=== PATIENT | female | born 1995 | race American Indian/Alaskan Native ===

== ENCOUNTER 2017-07-04 12:03 | Emergency (ER) | payer SELFPAY ==
--- NOTE | 2017-07-04 12:20 | Emergency Department Report ---
Chief Complaint: Headache Stated Complaint: BODY PAIN/SWELLING/CP Time Seen by Provider: 07/04/17 12:16 - HPI History of Present Illness: PT c/o generalized weakness, chest pain and her whole body swelling. - ROS Review of Systems: + fatigue + vaginal bleeding x 2 months PT states she fell today from generalized weakness - Exam Vital Signs: Vital Signs 07/04/17 12:11 Temperature 97.9 F Pulse Rate 53 L Respiratory 20 Rate Blood Pressure 135/76 O2 Sat by Pulse 100 Oximetry Physical Exam: PT is alert and appropriate in triage steady gait pale conjunctiva gcs 15 MSE screening note: Focused history and physical exam performed. Due to findings the following was ordered: labs, ekg, xr ED Disposition for MSE Condition: Stable
[2017-07-04 12:46] LABS: Basophils % (Auto) 0.6 % (0.0-1.8); Eosinophils % (Auto) 1.5 % (0.0-4.3); Hematocrit 31.1 % (30.3-42.9); Hemoglobin 9.9 gm/dl (10.1-14.3); Mean Corpuscular HGB Conc 32 % (30-34); Mean Corpuscular Hemoglobin 27 pg (28-32); Mean Corpuscular Volume 84 fl (79-97); Platelet Count 287 K/mm3 (140-440); Red Blood Count 3.69 M/mm3 (3.65-5.03); Red Cell Distribution Width 15.7 % (13.2-15.2); White Blood Count 6.6 K/mm3 (4.5-11.0)
[2017-07-04 12:55] LABS: INR 1.12 (0.87-1.13)
[2017-07-04 12:56] LABS: Partial Thromboplastin Time 32.9 Sec. (24.2-36.6)
[2017-07-04 13:06] LABS: Alanine Aminotransferase 10 units/L (7-56); Albumin 3.5 g/dL (3.9-5); Alkaline Phosphatase 58 units/L (35-129); Anion Gap 16 mmol/L; BUN/Creatinine Ratio 14.28; Blood Urea Nitrogen 10 mg/dL (7-17); Calcium 8.6 mg/dL (8.4-10.2); Carbon Dioxide 23 mmol/L (22-30); Chloride 100.8 mmol/L (98-107); Glucose 92 mg/dL (65-100); Potassium 3.5 mmol/L (3.6-5.0); Sodium 136 mmol/L (137-145)
--- NOTE | 2017-07-04 14:04 | XRay Report ---
ROUTINE CHEST, TWO VIEWS: HISTORY: chest pain. The trachea, heart, mediastinal contour, lung johns and bony thorax are unremarkable. IMPRESSION: Unremarkable chest x-ray.
--- NOTE | 2017-07-04 14:28 | Ultrasound Report ---
ULTRASOUND OB LESS THAN 14 WEEKS FETUS ULTRASOUND OB TRANSVAGINAL HISTORY: Positive test, vaginal bleeding. TECHNIQUE: Transabdominal and transvaginal ultrasound with color and spectral doppler interrogation. The uterus measures 9 x 4 x 5 cm. No normal intrauterine is visualized. There is thickening and soft tissue echogenicity within the endocervical canal measuring up to 1.5 cm in thickness. This may represent an incomplete . The upper endometrial stripe measures 8 mm. The ovaries are within normal limits. No adnexal cyst or mass. Small pelvic fluid is noted. IMPRESSION: Findings concerning for an incomplete . See above.
[2017-07-04 17:00] VITALS: BP 135/86
--- NOTE | 2017-07-04 17:09 | Emergency Department Report ---
ED General Adult HPI - General Chief complaint: Headache Stated complaint: BODY PAIN/SWELLING/CP Time Seen by Provider: 07/04/17 12:16 Source: patient Mode of arrival: Ambulatory Limitations: No Limitations - History of Present Illness Initial comments: 21-year-old female with no significant past medical history presents to the hospital with multiple complaints. Patient complains of pain to the left angle of her mandible radiating to her ear and head which she describes as "a migraine " for several days. Patient has no previous history of headaches or migraines. Patient noticed swelling to that area as well. Denies sore throat, cough, or fever. This morning at 11 AM patient developed lower mid sternal chest pain described as stabbing. Pain worse to palpation and deep, movement, and deep inspiration. Patient also has had vaginal bleeding for last 2 months has not taken a test. Procedures in ED positive and patient states this is her second and she has one child with no history of miscarriage, , or ectopics. Severity scale (0 -10): 4 - Related Data Previous Rx's Medication Instructions Recorded Last Taken Type Ibuprofen [Motrin 600 MG tab] 600 mg PO Q6H PRN #30 tablet 08/29/14 Unknown Rx Amoxicillin/K Clav Tab [Augmentin 1 tab PO Q12HR #14 tab 07/04/17 Unknown Rx 875 mg] Allergies Allergy/AdvReac Type Severity Reaction Status Date / Time No Known Allergies Allergy Verified 07/04/17 12:13 ED Review of Systems ROS: Stated complaint: BODY PAIN/SWELLING/CP Other details as noted in HPI Comment: All other systems reviewed and negative Other: Constitutional: No fevers chills Eyes: No eye pain visual changes ENT: No ear pain or throat pain Neck: Denies pain Respiratory: Denies cough wheezing Cardiovascular: Denies palpitations, syncope GI: Denies abdominal pain, nausea, vomiting, diarrhea : Vaginal bleeding Musculoskeletal: Denies back pain Skin: Denies rash, lesions, erythema Neurologic: Denies headache, numbness, weakness Psychiatric: Denies suicidal ideation, hallucinations ED Past Medical Hx - Past Medical History Hx Hypertension: No Hx Congestive Heart Failure: No Hx Diabetes: No Hx Deep Vein Thrombosis: No Hx Renal Disease: No Hx Sickle Cell Disease: No Hx Seizures: No Hx Asthma: No Hx COPD: No Hx HIV: No 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 - Surgical History Past Surgical History?: No - Social History Smoking Status: Never Smoker Substance Use Type: None - Medications Home Medications: Home Medications Medication Instructions Recorded Confirmed Last Taken Type Ibuprofen [Motrin 600 MG tab] 600 mg PO Q6H PRN #30 tablet 08/29/14 Unknown Rx Amoxicillin/K Clav Tab [Augmentin 1 tab PO Q12HR #14 tab 07/04/17 Unknown Rx 875 mg] ED Physical Exam - General Limitations: No Limitations - Other Other exam information: General: No limitations, patient is alert in no acute distress Head exam: Atraumatic, normocephalic Eyes exam: Normal appearance ENT: Moist mucous membrane, normal oropharynx without exudate. Left ear canal tenderness on exam with mild erythema p.m. poor light reflex Neck exam: Normal inspection, full range of motion, no meningismus, tender lymph node at the neck close to the angle of the mandible. Respiratory exam: Clear to auscultation bilateral, no wheezes, rales, crackles Cardiovascular: Normal rate and rhythm, normal heart sounds, reproducible mid lower sternal tenderness Abdomen: Soft, nondistended, and nontender, with normal bowel sounds, no rebound, or guarding Extremity: Full range of motion normal inspection no deformity, no calf tenderness or edema Back: Normal Inspection, full range of motion, no tenderness Neurologic: Alert, oriented x3, cranial nerves intact, no motor or sensory deficit Psychiatric: normal affect, normal mood Skin: Warm, dry, intact ED Course Vital Signs 07/04/17 07/04/17 12:11 16:57 Temperature 97.9 F Pulse Rate 53 L 52 L Respiratory 20 16 Rate Blood Pressure 135/76 Blood Pressure 135/86 [Left] O2 Sat by Pulse 100 100 Oximetry - Reevaluation(s) Reevaluation #1: 07/04/17 17:09 Patient received RhoGAM for Rh- blood type - Consultations Consultation #1: 07/04/17 17:05 case d/w Dr Simmons/RN ANGIOGRAPHY. Recommend repeat beta hCG in 40 hours. Patient may follow up in the office. ED Medical Decision Making - Lab Data Result diagrams: 07/04/17 12:29 07/04/17 12:29 Lab Results 07/04/17 07/04/17 07/04/17 Range/Units 09:42 12:29 12:29 WBC 6.6 (4.5-11.0) K/mm3 RBC 3.69 (3.65-5.03) M/mm3 Hgb 9.9 L (10.1-14.3) gm/dl Hct 31.1 (30.3-42.9) % MCV 84 (79-97) fl MCH 27 L (28-32) pg MCHC 32 (30-34) % RDW 15.7 H (13.2-15.2) % Plt Count 287 (140-440) K/mm3 Lymph % (Auto) 40.3 H (13.4-35.0) % Evans % (Auto) 7.0 (0.0-7.3) % Eos % (Auto) 1.5 (0.0-4.3) % Baso % (Auto) 0.6 (0.0-1.8) % Lymph # 2.6 (1.2-5.4) K/mm3 Evans # 0.5 (0.0-0.8) K/mm3 Eos # 0.1 (0.0-0.4) K/mm3 Baso # 0.0 (0.0-0.1) K/mm3 Seg Neutrophils % 50.6 (40.0-70.0) % Seg Neutrophils # 3.3 (1.8-7.7) K/mm3 PT (12.2-14.9) Sec. INR (0.87-1.13) APTT (24.2-36.6) Sec. Sodium 136 L (137-145) mmol/L Potassium 3.5 L (3.6-5.0) mmol/L Chloride 100.8 (98-107) mmol/L Carbon Dioxide 23 (22-30) mmol/L Anion Gap 16 mmol/L BUN 10 (7-17) mg/dL Creatinine 0.7 (0.7-1.2) mg/dL Estimated GFR > 60 ml/min BUN/Creatinine Ratio 14.28 % Glucose 92 (65-100) mg/dL Calcium 8.6 (8.4-10.2) mg/dL Total Bilirubin 0.20 (0.1-1.2) mg/dL AST 13 (5-40) units/L ALT 10 (7-56) units/L Alkaline Phosphatase 58 (35-129) units/L Troponin T < 0.010 (0.00-0.029) ng/mL Total Protein 7.0 (6.3-8.2) g/dL Albumin 3.5 L (3.9-5) g/dL Albumin/Globulin Ratio 1.0 % HCG, Qual (Negative) HCG, Quant 81.74 H (0-4) mIU/mL Blood Type Antibody Screen 07/04/17 07/04/17 07/04/17 Range/Units 12:29 12:29 12:29 WBC (4.5-11.0) K/mm3 RBC (3.65-5.03) M/mm3 Hgb (10.1-14.3) gm/dl Hct (30.3-42.9) % MCV (79-97) fl MCH (28-32) pg MCHC (30-34) % RDW (13.2-15.2) % Plt Count (140-440) K/mm3 Lymph % (Auto) (13.4-35.0) % Evans % (Auto) (0.0-7.3) % Eos % (Auto) (0.0-4.3) % Baso % (Auto) (0.0-1.8) % Lymph # (1.2-5.4) K/mm3 Evans # (0.0-0.8) K/mm3 Eos # (0.0-0.4) K/mm3 Baso # (0.0-0.1) K/mm3 Seg Neutrophils % (40.0-70.0) % Seg Neutrophils # (1.8-7.7) K/mm3 PT 15.0 H (12.2-14.9) Sec. INR 1.12 (0.87-1.13) APTT 32.9 (24.2-36.6) Sec. Sodium (137-145) mmol/L Potassium (3.6-5.0) mmol/L Chloride (98-107) mmol/L Carbon Dioxide (22-30) mmol/L Anion Gap mmol/L BUN (7-17) mg/dL Creatinine (0.7-1.2) mg/dL Estimated GFR ml/min BUN/Creatinine Ratio % Glucose (65-100) mg/dL Calcium (8.4-10.2) mg/dL Total Bilirubin (0.1-1.2) mg/dL AST (5-40) units/L ALT (7-56) units/L Alkaline Phosphatase (35-129) units/L Troponin T (0.00-0.029) ng/mL Total Protein (6.3-8.2) g/dL Albumin (3.9-5) g/dL Albumin/Globulin Ratio % HCG, Qual Positive (Negative) HCG, Quant (0-4) mIU/mL Blood Type O NEGATIVE Antibody Screen Negative - EKG Data -: EKG Interpreted by Me (sinus bradycardia rate 50. ST elevation MA) - EKG Data When compared to previous EKG there are: previous EKG unavailable - Radiology Data Radiology results: report reviewed (cxr: unremarkable) - Medical Decision Making Other differential , anemia, ectopic, miscarriage Patient is likely having a miscarriage given her history of 2 months of vaginal bleeding, low hCG number, and sounds findings. Patient would need a repeat beta -hCG in 48 hours to confirm this miscarriage diagnosis. Patient having left sided neck lymphadenopathy with ear pain. She'll be covered with an antibiotic. Patient had a reproducible chest wall pain and will receive symptomatic treatment for costochondritis. - Differential Diagnosis otitis media/externa, viral syndrome, costochondritis, pneumonia, pharyngit Critical Care Time: No Critical care attestation.: If time is entered above; I have spent that time in minutes in the direct care of this critically ill patient, excluding procedure time. ED Disposition Clinical Impression: Threatened , Lymphadenopathy, Costochondritis, acute, Otitis media, Anemia Disposition: - TO HOME OR SELFCARE Is pt being admited?: No Does the pt Need Aspirin: No Condition: Stable Instructions: Costochondritis (ED), Threatened Miscarriage (ED), Otitis Media ( ED) Additional Instructions: Take Tylenol as needed for pain. Return if symptoms worsen. Follow up for blood draw with the RN ANGIOGRAPHY doctor within 48 hours. If you are unable to see the RN ANGIOGRAPHY doctor you may return here for repeat blood work. Prescriptions: Amoxicillin/K Clav Tab [Augmentin 875 mg] 1 tab PO Q12HR #14 tab Referrals: KELSIE NUNO MD [Staff Physician] - 07/06/17 (follow up in 48 ) PRIMARY CARE, [Primary Care Provider] - 3-5 Days Time of Disposition: 17:17
== END 2017-07-04 17:39 | disposition home or self-care (01) ==
LOC: ED 12:03
DX: O20.0 Threatened abortion (principal); O26.899 Other specified pregnancy related conditions, unspecified trimester; R59.1 Generalized enlarged lymph nodes; M94.0 Chondrocostal junction syndrome [Tietze]; H66.93 Otitis media, unspecified, bilateral; D64.9 Anemia, unspecified; Z3A.49 Greater than 42 weeks gestation of pregnancy
CPT/HCPCS: 36415; 71020; 76801; 76817; 80053; 84484; 84702; 84703; 85025; 85610; 85730; 86850; 86900; 86901; 93005; 93010; 99284; J2790

== ENCOUNTER 2017-07-07 13:46 | Emergency (ER) | payer SELFPAY ==
[2017-07-07 14:00] VITALS: BP 134/75
[2017-07-07 14:45] LABS: Basophils % (Auto) 0.6 % (0.0-1.8); Hematocrit 31.2 % (30.3-42.9); Hemoglobin 10.1 gm/dl (10.1-14.3); Mean Corpuscular HGB Conc 32 % (30-34); Mean Corpuscular Hemoglobin 27 pg (28-32); Mean Corpuscular Volume 84 fl (79-97); Platelet Count 297 K/mm3 (140-440); Red Blood Count 3.74 M/mm3 (3.65-5.03); Red Cell Distribution Width 15.9 % (13.2-15.2); White Blood Count 6.9 K/mm3 (4.5-11.0)
== END 2017-07-07 17:13 | disposition left against medical advice (07) ==
LOC: ED 13:46
DX: Z53.21 Procedure and treatment not carried out due to patient leaving prior to being seen by health care provider (principal)
CPT/HCPCS: 36415; 84702; 84703; 85025

== ENCOUNTER 2018-02-12 21:49 | Emergency (ER) | payer SELFPAY ==
[2018-02-12 22:02] VITALS: BP 139/77
== END 2018-02-13 00:50 | disposition left against medical advice (07) ==
LOC: ED 21:49
DX: L02.412 Cutaneous abscess of left axilla (principal); Z53.21 Procedure and treatment not carried out due to patient leaving prior to being seen by health care provider

== ENCOUNTER 2018-04-15 02:04 | Emergency (ER) | payer OTHER ==
[2018-04-15 03:39] LABS: BUN/Creatinine Ratio 15; Blood Urea Nitrogen 9 mg/dL (7-17); Calcium 8.8 mg/dL (8.4-10.2); Hemolysis Index 1
[2018-04-15 04:02] LABS: Basophils % (Auto) 0.5 % (0.0-1.8); Eosinophils % (Auto) 0.9 % (0.0-4.3); Lymphocytes # (Auto) 1.9 K/mm3 (1.2-5.4); Lymphocytes % (Auto) 38.6 % (13.4-35.0); Mean Corpuscular HGB Conc 33 % (30-34); Mean Corpuscular Hemoglobin 27 pg (28-32); Mean Corpuscular Volume 84 fl (79-97); Monocytes # (Auto) 0.4 K/mm3 (0.0-0.8); Monocytes % (Auto) 7.5 % (0.0-7.3); Platelet Count 253 K/mm3 (140-440); Red Blood Count 4.43 M/mm3 (3.65-5.03); Red Cell Distribution Width 16.8 % (13.2-15.2)
[2018-04-15 04:06] LABS: Bilirubin,Urine NEG (Negative); Blood,Urine NEG (Negative); Color,Urine Straw (Yellow); Protein,Urine <15 mg/dL mg/dL (Negative); Urobilinogen,Urine < 2.0 mg/dL (<2.0)
[2018-04-15 04:14] LABS: Amphetamine Screen,Urine PRESUMPTIVE NEGATIVE; Benzodiazepines Screen,Urine PRESUMPTIVE NEGATIVE; Cannabinoid Screen,Urine PRESUMPTIVE NEGATIVE; Cocaine Screen,Urine PRESUMPTIVE NEGATIVE; Methadone Screen,Urine PRESUMPTIVE NEGATIVE; Opiate Screen,Urine PRESUMPTIVE NEGATIVE
--- NOTE | 2018-04-15 04:49 | Emergency Department Report ---
ED Psych HPI - General Chief Complaint: Overdose Stated Complaint: POSS OD Time Seen by Provider: 04/15/18 04:38 Source: patient, EMS Mode of arrival: Stretcher - History of Present Illness Initial Comments: Michelle is a 22 yo female who presents with intentional drug overdose. She took 9 pills of ibuprofen prior to arrival. She stated that she wanted the "pain to go away." She gives very limited history. I asked her why she would not cooperate. She explains "I do not want to be treated like a psych patient. " When I ask about depression or previous suicide attempts, she chooses not to answer. She states that she just wants to go home. I reviewed nursing report and spoke with staff member. EMS reported that the patient was found by her sister awake but not talking. EMS found him 75 pills spilled all over the bed. MD Complaint: other (intentional drug overdose) Associated Psychiatric Symptoms: other (patient gives limited information.) - Related Data Previous Rx's Medication Instructions Recorded Last Taken Type Ibuprofen [Motrin 600 MG tab] 600 mg PO Q6H PRN #30 tablet 08/29/14 Unknown Rx Amoxicillin/K Clav Tab [Augmentin 1 tab PO Q12HR #14 tab 07/04/17 Unknown Rx 875 mg] Allergies Allergy/AdvReac Type Severity Reaction Status Date / Time No Known Allergies Allergy Verified 07/04/17 12:13 ED Review of Systems ROS: Stated complaint: POSS OD Other details as noted in HPI Comment: Unobtainable due to pts medical conditions (patient will not cooperate ) ED Past Medical Hx - Past Medical History Hx Hypertension: No Hx Congestive Heart Failure: No Hx Diabetes: No Hx Deep Vein Thrombosis: No Hx Renal Disease: No Hx Sickle Cell Disease: No Hx Seizures: No Hx Asthma: No Hx COPD: No Hx HIV: No 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 - Social History Smoking Status: Never Smoker Substance Use Type: Other - Medications Home Medications: Home Medications Medication Instructions Recorded Confirmed Last Taken Type Ibuprofen [Motrin 600 MG tab] 600 mg PO Q6H PRN #30 tablet 08/29/14 Unknown Rx Amoxicillin/K Clav Tab [Augmentin 1 tab PO Q12HR #14 tab 07/04/17 Unknown Rx 875 mg] ED Physical Exam - General Limitations: Other General appearance: alert, in no apparent distress - Head Head exam: Present: atraumatic, normocephalic - Eye Eye exam: Present: normal appearance - ENT ENT exam: Present: mucous membranes moist - Neck Neck exam: Present: normal inspection - Respiratory Respiratory exam: Present: normal lung sounds bilaterally. Absent: respiratory distress, wheezes, rhonchi - Cardiovascular Cardiovascular Exam: Present: regular rate, normal rhythm, normal heart sounds. Absent: systolic murmur, diastolic murmur, rubs, gallop - GI/Abdominal GI/Abdominal exam: Present: soft, normal bowel sounds. Absent: distended, tenderness, guarding, rebound - Extremities Exam Extremities exam: Present: normal inspection - Back Exam Back exam: Present: normal inspection - Neurological Exam Neurological exam: Present: alert, oriented X3 - Psychiatric Psychiatric exam: Present: depressed, flat affect. Absent: normal affect, normal mood - Skin Skin exam: Present: warm, dry, intact, normal color. Absent: rash ED Course Vital Signs 04/15/18 04/15/18 04/15/18 02:27 02:31 02:45 Temperature 97.2 F L Pulse Rate 69 78 66 Respiratory 20 17 17 Rate Blood Pressure 149/95 126/78 O2 Sat by Pulse 100 100 Oximetry 04/15/18 04/15/18 03:00 04:36 Temperature Pulse Rate 67 Respiratory 23 18 Rate Blood Pressure 134/83 O2 Sat by Pulse 100 100 Oximetry ED Medical Decision Making - Lab Data Result diagrams: 04/15/18 03:06 04/15/18 03:06 Laboratory Results - last 24 hr 04/15/18 04/15/18 04/15/18 03:06 03:06 03:06 WBC RBC Hgb Hct MCV MCH MCHC RDW Plt Count Lymph % (Auto) Bryan % (Auto) Eos % (Auto) Baso % (Auto) Lymph # Bryan # Eos # Baso # Seg Neutrophils % Seg Neutrophils # Sodium 138 Potassium 3.7 Chloride 102.6 Carbon Dioxide 22 Anion Gap 17 BUN 9 Creatinine 0.6 L Estimated GFR > 60 BUN/Creatinine Ratio 15 Glucose 82 Calcium 8.8 HCG, Qual Urine Color Urine Turbidity Urine pH Ur Specific [place] Urine Protein Urine Glucose (UA) Urine Ketones Urine Blood Urine Nitrite Urine Bilirubin Urine Urobilinogen Ur Leukocyte Esterase Urine WBC (Auto) Urine RBC (Auto) U Epithel Cells (Auto) Salicylates 11.1 Urine Opiates Screen Urine Methadone Screen Acetaminophen < 5.0 L Ur Barbiturates Screen Ur Phencyclidine Scrn Ur Amphetamines Screen U Benzodiazepines Scrn Urine Cocaine Screen U Marijuana (THC) Screen Plasma/Serum Alcohol 04/15/18 04/15/18 04/15/18 03:06 03:06 03:06 WBC 4.9 RBC 4.43 Hgb 12.0 Hct 37.0 MCV 84 MCH 27 L MCHC 33 RDW 16.8 H Plt Count 253 Lymph % (Auto) 38.6 H Bryan % (Auto) 7.5 H Eos % (Auto) 0.9 Baso % (Auto) 0.5 Lymph # 1.9 Bryan # 0.4 Eos # 0.0 Baso # 0.0 Seg Neutrophils % 52.5 Seg Neutrophils # 2.6 Sodium Potassium Chloride Carbon Dioxide Anion Gap BUN Creatinine Estimated GFR BUN/Creatinine Ratio Glucose Calcium HCG, Qual Negative Urine Color Urine Turbidity Urine pH Ur Specific [place] Urine Protein Urine Glucose (UA) Urine Ketones Urine Blood Urine Nitrite Urine Bilirubin Urine Urobilinogen Ur Leukocyte Esterase Urine WBC (Auto) Urine RBC (Auto) U Epithel Cells (Auto) Salicylates Urine Opiates Screen Urine Methadone Screen Acetaminophen Ur Barbiturates Screen Ur Phencyclidine Scrn Ur Amphetamines Screen U Benzodiazepines Scrn Urine Cocaine Screen U Marijuana (THC) Screen Plasma/Serum Alcohol < 0.01 04/15/18 04/15/18 03:25 03:25 WBC RBC Hgb Hct MCV MCH MCHC RDW Plt Count Lymph % (Auto) Bryan % (Auto) Eos % (Auto) Baso % (Auto) Lymph # Bryan # Eos # Baso # Seg Neutrophils % Seg Neutrophils # Sodium Potassium Chloride Carbon Dioxide Anion Gap BUN Creatinine Estimated GFR BUN/Creatinine Ratio Glucose Calcium HCG, Qual Urine Color Straw Urine Turbidity Clear Urine pH 5.0 Ur Specific [place] 1.006 Urine Protein <15 mg/dl Urine Glucose (UA) Neg Urine Ketones Neg Urine Blood Neg Urine Nitrite Neg Urine Bilirubin Neg Urine Urobilinogen < 2.0 Ur Leukocyte Esterase Tr Urine WBC (Auto) 1.0 Urine RBC (Auto) 3.0 U Epithel Cells (Auto) 2.0 Salicylates Urine Opiates Screen Presumptive negative Urine Methadone Screen Presumptive negative Acetaminophen Ur Barbiturates Screen Presumptive negative Ur Phencyclidine Scrn Presumptive negative Ur Amphetamines Screen Presumptive negative U Benzodiazepines Scrn Presumptive negative Urine Cocaine Screen Presumptive negative U Marijuana (THC) Screen Presumptive negative Plasma/Serum Alcohol Vital Signs - 24 hr 04/15/18 04/15/18 04/15/18 02:27 02:31 02:45 Temperature 97.2 F L Pulse Rate 69 78 66 Respiratory 20 17 17 Rate Blood Pressure 149/95 126/78 O2 Sat by Pulse 100 100 Oximetry 04/15/18 04/15/18 03:00 04:36 Temperature Pulse Rate 67 Respiratory 23 18 Rate Blood Pressure 134/83 O2 Sat by Pulse 100 100 Oximetry - Medical Decision Making Michelle presents with acute depression and intentional nonlethal overdose. She has a very flat affect with sad mood. She has poor insight. She is at high risk for further harm. She is placed on 1013 with appropriate precautions. She was observed on monitor for 5 hours without cardiovascular instability. She is medically clear for psychiatric care. Critical care attestation.: If time is entered above; I have spent that time in minutes in the direct care of this critically ill patient, excluding procedure time. ED Disposition Clinical Impression: Intentional drug overdose, Acute depression Disposition: DC/TX-70 ANOTHER TYPE HLTHCARE Is pt being admited?: No Does the pt Need Aspirin: No Condition: Stable Referrals: PRIMARY CARE, [Primary Care Provider] - 3-5 Days
--- NOTE | 2018-04-15 15:36 | Consultation ---
History of Present Illness - Reason for Consult Consult date: 04/15/18 Reason for consult: Initial Psychiatric Evaluation Medications and Allergies Allergies Allergy/AdvReac Type Severity Reaction Status Date / Time No Known Allergies Allergy Verified 07/04/17 12:13 Home Medications Medication Instructions Recorded Confirmed Last Taken Type Ibuprofen [Motrin 600 MG tab] 600 mg PO Q6H PRN #30 tablet 08/29/14 Unknown Rx Amoxicillin/K Clav Tab [Augmentin 1 tab PO Q12HR #14 tab 07/04/17 Unknown Rx 875 mg] Mental Status Exam - Vital signs Last Vital Signs Temp 97.2 F L 04/15/18 02:31 Pulse 67 04/15/18 03:00 Resp 18 04/15/18 11:47 BP 131/68 04/15/18 04:45 Pulse Ox 98 04/15/18 11:47 Results Result Diagrams: 04/15/18 03:06 04/15/18 03:06 Abnormal lab results 04/15/18 04/15/18 04/15/18 Range/Units 03:06 03:06 03:06 MCH 27 L (28-32) pg RDW 16.8 H (13.2-15.2) % Lymph % (Auto) 38.6 H (13.4-35.0) % [place] % (Auto) 7.5 H (0.0-7.3) % Creatinine 0.6 L (0.7-1.2) mg/dL Acetaminophen < 5.0 L (10.0-30.0) ug/mL All other labs normal. Assessment and Plan Assessment and plan: Impression: MDD, Severe Type. Cannabis Use DO. Today the patient is depressed, anxious, and tearful during the assessment. Attempting to minimize overdose. DDx: R/O Bipolar DO, R/O MDD Recommendation/Plan: 1. Continue 1013 with placement to inpatient psychiatric services. 2. Risk/Benefits discussed with patient reference antidepressants. 3. The patient prefer therapy at this time instead of taking medication.
--- NOTE | 2018-04-17 14:27 | Progress Note ---
Subjective - Reason for Consult Consult date: 04/17/18 Reason for consult: Psychiatry Follow-up - Chief Complaint Chief complaint: 22 yo AA female who presents with intentional drug overdose. Today the patient is calm during the assessment. 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 She denies SI/HI's and AVH's. She does not want to take any medication at this time. Mental Status Exam - Vital signs Last Vital Signs Temp 98.7 F 04/17/18 09:31 Pulse 65 04/17/18 09:31 Resp 16 04/17/18 09:31 BP 122/73 04/17/18 09:31 Pulse Ox 99 04/17/18 09:31 - Exam Narrative exam: MSE: Appearance: calm, cooperative Behavior: regular eye contact Speech: regular rate and tone Mood: "okay" Affect: congruent to mood Thought Process: circumstantial Thought Content: denies SI/HI's and AVH's Motor Activity: ambulatory Cognition: A/O x 3 Insight: fair Judgment: variable Assessment and Plan Impression: MDD, Severe Type. Cannabis Use DO. Today the patient is calm during the assessment. She is minimize her actions. DDx: R/O Bipolar DO Recommendation/Plan: Continue 1013 with placement to inpatient psy services. Risk/Benefits discussed with patient reference antidepressants. The patient does not want to take medication at this time. Generalized coping skills discussed with the patient.
--- NOTE | 2018-04-18 14:20 | Progress Note ---
Subjective - Reason for Consult Consult date: 04/18/18 Reason for consult: Psychiatry Follow-up - Chief Complaint Chief complaint: "I feel better" 22 yo AA female who presents with intentional drug overdose. Today the patient is calm and cooperative during the assessment. She stated that she spoke with her mother and grandmother about her actions. She stated that she should have not taken the Ibuprofen pills. She stated that her actions were not safe. She denies SI/HI's and AVH's. co Mental Status Exam - Vital signs Last Vital Signs Temp 99.0 F 04/18/18 09:40 Pulse 60 04/18/18 09:40 Resp 18 04/18/18 09:40 BP 126/77 04/18/18 09:40 Pulse Ox 100 04/18/18 09:40 - Exam Narrative exam: MSE: Appearance: calm, cooperative Behavior: regular eye contact Speech: regular rate and tone Mood: "better" Affect: congruent to mood Thought Process: circumstantial Thought Content: denies SI/HI's and AVH's Motor Activity: ambulatory Cognition: A/O x 3 Insight: fair Judgment: variable Assessment and Plan Impression: MDD, Severe Type. Cannabis Use DO. Today the patient is calm during the assessment. DDx: R/O Bipolar DO Recommendation/Plan: Continue 1013 with placement to inpatient psy services. Risk/Benefits discussed with patient reference antidepressants. The patient does not want to take medication at this time. Generalized coping skills discussed with the patient.
--- NOTE | 2018-04-19 14:05 | Progress Note ---
Subjective - Reason for Consult Reason for consult: qiana consult - Chief Complaint Chief complaint: "I feel better" 22 yo AA female who presents with intentional drug overdose. Today the patient remains calm and continues to deny any SI/HI/AH/VH. she reiterates that she understands what she did was wrong for her health and improper coping. She denies any depression. She notes that she is willing to follow up with outpt care and would like to return home with her family. Mental Status Exam - Vital signs Last Vital Signs Temp 98.6 F 04/18/18 20:45 Pulse 66 04/18/18 20:45 Resp 16 04/18/18 20:45 BP 120/68 04/18/18 20:45 Pulse Ox 99 04/18/18 20:45 - Exam Orientation: time, place, person Affect: normal Mood: appropriate Thought Process: Intact Perceptions: none Speech: normal rate and pattern Concentration: focused Motor activity: normal Level of consciousness: alert Memory: Intact Mini mental status exam(if necessary): 24-30 Assessment and Plan Impression: MDD, Severe Type. Cannabis Use DO. Recommendation/Plan: -Rescind 1013 -At this time the patient no longer meets criteria for inpatient care- she is no longer expressing harm to self and her family notes that they feel they can care for her. -material related to follow up with outpt services will be given to her.
[2018-04-19 14:08] VITALS: BP 119/68
--- NOTE | 2018-04-19 14:48 | Emergency Department Report ---
Blank Doc - Documentation Documentation: I reviewed Dr. Haynes's psychiatric consultation. Dr. Hyanes has rescinded 1013. Patient has appropriate insight. She is appropriate for discharge and outpatient f/u.
== END 2018-04-19 15:26 | disposition home or self-care (01) ==
LOC: EEVIPCON 02:04 → ED 02:04
DX: T39.312A Poisoning by propionic acid derivatives, intentional self-harm, initial encounter (principal); F32.9 Major depressive disorder, single episode, unspecified; F12.10 Cannabis abuse, uncomplicated; Y92.89 Other specified places as the place of occurrence of the external cause
CPT/HCPCS: 36415; 80048; 80307; 81001; 84703; 85025; 99284; G0480; 80320

== ENCOUNTER 2018-11-14 23:53 | Emergency (ER) | payer SELFPAY ==
[2018-11-15 00:09] VITALS: BP 136/81
[2018-11-15 00:39] LABS: Bilirubin,Urine NEG (Negative); Blood,Urine NEG (Negative); Color,Urine Yellow (Yellow); Mucus,Urine 3+ /HPF
[2018-11-15 00:45] LABS: HCG Qualitative,Urine Negative (Negative)
[2018-11-15 01:12] LABS: Basophils % (Auto) 0.4 % (0.0-1.8); Eosinophils % (Auto) 0.3 % (0.0-4.3); Hematocrit 35.4 % (30.3-42.9); Hemoglobin 11.5 gm/dl (10.1-14.3); Lymphocytes # (Auto) 1.6 K/mm3 (1.2-5.4); Lymphocytes % (Auto) 14.5 % (13.4-35.0); Mean Corpuscular HGB Conc 33 % (30-34); Mean Corpuscular Volume 84 fl (79-97); Monocytes # (Auto) 0.7 K/mm3 (0.0-0.8); Monocytes % (Auto) 6.7 % (0.0-7.3); Platelet Count 298 K/mm3 (140-440); Red Blood Count 4.21 M/mm3 (3.65-5.03); Red Cell Distribution Width 15.5 % (13.2-15.2)
[2018-11-15] MEDS ORDERED: IBUPROFEN PO ONE (01:28)
[2018-11-15] MEDS ORDERED: ULTRAM PO ONE (01:28)
[2018-11-15 01:41] LABS: Alanine Aminotransferase 15 units/L (7-56); Albumin 4.3 g/dL (3.9-5); BUN/Creatinine Ratio 14; Blood Urea Nitrogen 10 mg/dL (7-17); Calcium 9.3 mg/dL (8.4-10.2); Hemolysis Index 0
--- NOTE | 2018-11-15 01:42 | Emergency Department Report ---
ED Female HPI - General Chief complaint: Urogenital-Female Stated complaint: BACK PAIN CYST PELVIC DISCOMFORT Time Seen by Provider: 11/15/18 00:53 Source: patient Mode of arrival: Ambulatory Limitations: No Limitations - History of Present Illness Initial comments: 22-year-old -[place] Citizen female presents to the emergency room for pain and swelling to the vaginal labia 2 days. Patient also reports back pain 2 days and feels like the back pain is due to her positioning since she has swelling to her vaginal area. Patient reports that she's had the same history of abscesses in the past. Patient has taken nothing for pain. Patient was unaware that she had a fever. Patient is 3 para 1. Patient reports her last menstrual period was 09/29/2018. She has no primary care provider currently takes no medications and has no known drug allergies. MD Complaint: pelvic pain -: days(s) (2) Location: labia Severity scale (0 -10): 8 Quality: sharp Consistency: constant Improves with: none Worsens with: movement Are you Now?: No Last Menstrual Period: 09/29/18 EDC: 07/06/19 - Related Data Sexually active: Yes : 3 Para: 1 A: 2 Previous Rx's Medication Instructions Recorded Last Taken Type Amoxicillin/K Clav Tab [Augmentin 1 tab PO Q12HR #14 tab 07/04/17 Unknown Rx 875 mg] Cephalexin [Keflex] 500 mg PO BID #20 capsule 11/15/18 Unknown Rx Ibuprofen [Motrin 600 MG tab] 600 mg PO Q6H PRN #30 tablet 11/15/18 Unknown Rx Allergies Allergy/AdvReac Type Severity Reaction Status Date / Time No Known Allergies Allergy Verified 07/04/17 12:13 ED Review of Systems ROS: Stated complaint: BACK PAIN CYST PELVIC DISCOMFORT Other details as noted in HPI Comment: All other systems reviewed and negative Genitourinary: other (labia swelling) ED Past Medical Hx - Past Medical History Hx Hypertension: No Hx Congestive Heart Failure: No Hx Diabetes: No Hx Deep Vein Thrombosis: No Hx Renal Disease: No Hx Sickle Cell Disease: No Hx Seizures: No Hx Asthma: No Hx COPD: No Hx HIV: No Additional medical history: 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 - Surgical History Past Surgical History?: No - Social History Smoking Status: Never Smoker Substance Use Type: None - Medications Home Medications: Home Medications Medication Instructions Recorded Confirmed Last Taken Type Amoxicillin/K Clav Tab [Augmentin 1 tab PO Q12HR #14 tab 07/04/17 04/17/18 Unknown Rx 875 mg] Cephalexin [Keflex] 500 mg PO BID #20 capsule 11/15/18 Unknown Rx Ibuprofen [Motrin 600 MG tab] 600 mg PO Q6H PRN #30 tablet 11/15/18 Unknown Rx ED Physical Exam - General Limitations: No Limitations General appearance: alert, in no apparent distress - Head Head exam: Present: atraumatic, normocephalic - Eye Eye exam: Present: EOMI - Cardiovascular Cardiovascular Exam: Present: regular rate, normal rhythm. Absent: systolic murmur, diastolic murmur, rubs, gallop - GI/Abdominal GI/Abdominal exam: Present: soft, normal bowel sounds - External exam: Present: swelling (left labia) - Neurological Exam Neurological exam: Present: alert, oriented X3 - Psychiatric Psychiatric exam: Present: normal affect, normal mood - Expanded Skin Exam Expanded Type of lesion: Present: abscess Distribution of rash: genitals Description of rash: Present: tenderness ED Course Vital Signs 11/15/18 00:00 Temperature 101.2 F H Pulse Rate 104 H Blood Pressure 136/81 O2 Sat by Pulse 99 Oximetry ED Medical Decision Making - Lab Data Result diagrams: 11/15/18 00:49 11/15/18 01:21 - Medical Decision Making Patient has been evaluated by this provider in fast track. Patient was given ibuprofen for pain management Patient had a Bartholin's cyst that was incision and drained. H and will be treated with Rocephin 250 mg IM and a Zithromax and 1 g she'll be discharged home on Keflex 500 mg by mouth twice a day and referral to [facility]. Critical care attestation.: If time is entered above; I have spent that time in minutes in the direct care of this critically ill patient, excluding procedure time. ED Disposition Clinical Impression: Cyst of Bartholin's gland duct Disposition: TO HOME OR SELFCARE Is pt being admited?: No Does the pt Need Aspirin: No Condition: Stable Instructions: Bartholin Cyst (ED), Incision and Drainage (ED) Additional Instructions: Please complete antibiotics as prescribed. Take pain medication as needed and follow-up with your [facility] provider. Prescriptions: Cephalexin [Keflex] 500 mg PO BID #20 capsule Ibuprofen [Motrin 600 MG tab] 600 mg PO Q6H PRN #30 tablet PRN Reason: Mild Pain Unrelieved By Apap Referrals: MARQUITA GRAHAM MD [Primary Care Provider] - 3-5 Days [facility] [Provider [facility]] - 3-5 Days [facility] [Provider Group] - 3-5 Days [facility] [Provider Group] - 3-5 Days Forms: Work/School Release Form(ED)
[2018-11-15] MEDS ORDERED: ROCEPHIN IM ONE (03:08)
[2018-11-15] MEDS ORDERED: XYLOCAINE 1% MPF 5 mL INFILTRATI ONE (03:08)
[2018-11-15] MEDS ORDERED: ZITHROMAX PO ONE (03:08)
== END 2018-11-15 04:10 | disposition home or self-care (01) ==
LOC: ED 23:53
DX: N75.0 Cyst of Bartholin's gland (principal)
CPT/HCPCS: 36415; 80053; 81001; 81025; 82140; 85025; 87040; 96372; 99283; J0696

== ENCOUNTER 2022-03-13 22:22 | Outpatient (CLI) | payer MEDICAID ==
[2022-03-13 22:27] VITALS: BP 134/76
== END 2022-03-14 00:31 | disposition home or self-care (01) ==
LOC: TRG 22:22 → LD 22:24 → TRG 03-14 00:31
PROVIDERS: ATTEND Obstetrics & Gynecology
DX: Z34.93 Encounter for supervision of normal pregnancy, unspecified, third trimester (principal); Z3A.37 37 weeks gestation of pregnancy
CPT/HCPCS: 59025

== ENCOUNTER 2022-03-25 01:46 | Outpatient (CLI) | payer MEDICAID ==
[2022-03-25] MEDS ORDERED: ACETAMINOPHEN 325 MG TAB PO ONE (02:22)
--- NOTE | 2022-03-25 03:10 | Ultrasound Report ---
ULTRASOUND OBSTETRIC LIMITED INDICATION / CLINICAL INFORMATION: toy. Clinical Gestational Age (GA): 39.0 weeks.days COMPARISON: None available. FINDINGS: HEART RATE (beats per minute): 120 AMNIOTIC FLUID INDEX (cm) = 7.5 (normal = 7-24 cm) PRESENTATION: Cephalic. ADDITIONAL FINDINGS: None. IMPRESSION: 1. No significant abnormality. Signer Name: Aman Sosa MD Signed: 03/25/2022 3:06 AM Workstation Name: [id number]
[2022-03-25 04:11] VITALS: BP 132/80
== END 2022-03-25 05:30 | disposition home or self-care (01) ==
LOC: TRG 01:46 → APU 01:48 → TRG 05:30
PROVIDERS: ATTEND Obstetrics & Gynecology
DX: O62.9 Abnormality of forces of labor, unspecified (principal); O42.92 Full-term premature rupture of membranes, unspecified as to length of time between rupture and onset of labor; Z3A.39 39 weeks gestation of pregnancy
CPT/HCPCS: 76815